=== PATIENT | female | born 1955 | race Caucasian/White ===

== ENCOUNTER 2017-11-19 21:48 | Emergency (ER) | payer OTHER, BC ==
[~2017-11-19] VITALS: Ht 152.4 cm; Wt 35.4 kg
[2017-11-20] MEDS ORDERED: REGLAN 5 MG TAB5 MG PO (00:54)
[2017-11-20] MEDS ORDERED: BENADRYL25 MG PO (00:54)
[2017-11-20 01:49] VITALS: BP 120/57
== END 2017-11-20 01:49 | disposition home or self-care (01) ==
LOC: ER 21:48
DX: R51 Headache (principal)

== ENCOUNTER 2017-12-13 18:12 | Emergency (ER) | payer OTHER, BC ==
[~2017-12-13] VITALS: Ht 149.9 cm; Wt 39.0 kg
[~2017-12-13 18:12] MED LIST: BENADRYL25 MG PO; REGLAN 5 MG TAB5 MG PO
[2017-12-13] MEDS ORDERED: WELLBUTRIN XL300 MG PO (19:17)
[2017-12-13] MEDS ORDERED: TOPAMAX 25 MG T25 M1 PO (19:17)
[2017-12-13] MEDS ORDERED: PROZAC20 MG PO (19:17)
[2017-12-13] MEDS ORDERED: TRAZODONE HCL100 MG PO (19:17)
[2017-12-13] MEDS ORDERED: LOPRESSOR25 PO (19:18)
[2017-12-13 20:23] VITALS: BP 143/73
== END 2017-12-13 20:56 | disposition home or self-care (01) ==
LOC: ER 18:12
DX: R51 Headache (principal); Z88.8 Allergy status to other drugs, medicaments and biological substances

== ENCOUNTER 2017-12-23 19:53 | Emergency (ER) | payer OTHER, BC ==
[~2017-12-23] VITALS: Ht 149.9 cm; Wt 40.8 kg
[~2017-12-23 19:53] MED LIST changes: +LOPRESSOR25 PO; +PROZAC20 MG PO; +TOPAMAX 25 MG T25 M1 PO; +TRAZODONE HCL100 MG PO; +WELLBUTRIN XL300 MG PO
[2017-12-23] MEDS ORDERED: BUTALB-APAP-CA1 EACH PO (21:24)
[2017-12-23 21:40] VITALS: BP 144/79
== END 2017-12-23 21:41 ==
LOC: ER 19:53
DX: G43.909 Migraine, unspecified, not intractable, without status migrainosus (principal); I10 Essential (primary) hypertension